=== PATIENT | male | born 1975 | race Hispanic/Latino ===

== ENCOUNTER 2019-02-06 20:54 | Emergency (ER) | payer OTHER ==
[~2019-02-06 20:54] MED LIST: Iopamidol-370 76% 500 ML 1 ML ONE
--- NOTE | 2019-02-06 21:19 | RAD ---
Portable frontal chest radiograph: 02/06/2019 COMPARISON: None HISTORY: Chest pain FINDINGS: Lungs are clear. Heart and mediastinal contours appear within normal limits. IMPRESSION: No acute findings.
[2019-02-06 21:20] LABS: #Eosinphils 0.1 thou/uL (0.0-0.7); #Lymphocytes 2.1 thou/uL (1.20-3.40); #Monocytes 0.6 thou/uL (0.11-0.59); #Neutrophils 4.4 thou/uL (1.40-6.50); %Basophils 0.7 % (0.0-1.0); %Eosinophils 1.5 % (0.0-10.0); %Lymphocytes 29.1 % (21.0-51.0); %Monocytes 8.3 % (0.0-10.0); %Neutrophils 60.5 % (42.0-75.0); Hemoglobin 16.3 g/dL (14.0-18.0); Mean Corpuscular HGB CONC 35.5 g/dL (32.0-36.0); Mean Corpuscular Hemoglobin 32.8 pg (27.0-31.0); Mean Corpuscular Volume 92.3 fL (78.0-98.0); Mean Platelet Volume 8.8 fL (7.4-10.4); Platelet Count 165 thou/uL (130-400); RBC Distribution Width 11.9 % (11.5-14.5); Red Blood Cell (RBC) Count 4.98 mill/uL (4.70-6.10); White Blood Cell (WBC) Count 7.2 thou/uL (4.8-10.8)
[2019-02-06 21:20] LABS: Bilirubin Negative (Negative); Blood, Urine Negative (Negative); Clarity Clear (Clear); Glucose, Urine (Dipstick) Normal (Negative); Leukocyte Negative Leu/uL (Negative); Nitrite Negative (Negative); Protein, Urine (Dipstick) 20 mg/dL (Neg-Trace); Urobilinogen Normal mg/dL (Less than 2)
[2019-02-06 21:43] LABS: ALT (SGPT) 18 U/L (8-55); AST (SGOT) 12 U/L (5-34); Albumin 4.5 g/dL (3.5-5.0); Alkaline Phosphatase 85 U/L (40-110); Anion Gap 13 mmol/L (10-20); BUN (Urea Nitrogen) 12 mg/dL (8.9-20.6); Bilirubin, Total 1.5 mg/dL (0.2-1.2); Calc. Creatinine Clearance 0 mL/min (70-130); Calcium 9.7 mg/dL (7.8-10.44); Carbon Dioxide 29 mmol/L (22-29); Chloride 102 mmol/L (98-107); Estimated GFR-MDRD Greater than 90; Globulin 3.2 g/dL (2.4-3.5); Glucose 93 mg/dL (70-105); Lipase 11 U/L (8-78); Potassium 4.4 mmol/L (3.5-5.1); Protein, Total 7.7 g/dL (6.0-8.3); Sodium 140 mmol/L (136-145)
[2019-02-06] MEDS ORDERED: Morphine 4 MG/ML VIAL ONE (21:59)
[2019-02-06] MEDS ORDERED: Ketorolac Tromethamine 30 MG/ML VIAL ONE (21:59)
--- NOTE | 2019-02-06 23:11 | CT ---
CT abdomen and pelvis: 02/06/2019 COMPARISON: None HISTORY: Chest pain TECHNIQUE: Axial CT imaging obtained at 5 mm intervals from lung bases through pubic symphysis with I V contrast. Coronal and sagittal reformatted imaging obtained. FINDINGS: The visualized lung bases are unremarkable. No free intraperitoneal air or fluid. Liver, gallbladder, spleen, pancreas, adrenal glands, and kidneys are unremarkable. Limited assessmen t of the bowel without oral contrast media demonstrates no evidence for inflammatory change or obstruction. The appendix is unremarkable. There is mild scattered atherosclerotic calcification of t he infrarenal abdominal aorta. No abdominal or pelvic lymphadenopathy. No acute osseous abnormality. There is a small fat-containing umbilical hernia present. IMPRESSION: No acute findings.
[2019-02-06 23:57] LABS: Troponin I Less than 0.010 ng/mL (< 0.028)
== END 2019-02-07 00:06 ==
LOC: ERS 20:54 → EEVIPCON 20:54 → ERS 02-07 00:06
DX: R07.89 Other chest pain (principal)
CPT/HCPCS: 36415; 71045; 74177; 80053; 81003; 83690; 84484; 85025; 93005; 96374; 96375; J1885; J2270; Q9967